=== PATIENT | female | born 1975 | race Caucasian/White ===

== ENCOUNTER 2017-09-19 21:01 | Emergency (ER) | payer OTHER ==
[2017-09-19 21:26] VITALS: BP 130/78
--- NOTE | 2017-09-19 23:02 | RADIOLOGY REPORT (SQ) ---
EXAM DESCRIPTION: SHOULDER LEFT 2 OR MORE VIEWS COMPLETED DATE/TIME: 09/19/2017 10:53 pm REASON FOR STUDY: trauma, pain . Impact injury. Pain at the posterior proximal left humerus. COMPARISON: None. NUMBER OF VIEWS: Three views. TECHNIQUE: Internal rotation, external rotation, and Y view images acquired of the left shoulder. LIMITATIONS: None. FINDINGS: MINERALIZATION: Normal. BONES: No acute fracture or dislocation. JOINTS: No dislocation. Mild degenerative changes at the acromioclavicular joint. VISUALIZED LUNGS AND RIBS: No pneumothorax. No displaced rib fracture. SOFT TISSUES: No radiopaque foreign body. IMPRESSION: No radiographic evidence of acute injury. TECHNICAL DOCUMENTATION: JOB ID: [id number] [place]-[id number] 2010 [employer]- All Rights Reserved
[2017-09-19] MEDS ORDERED: MORPHINE SULFATE IR 15 MG TABLET PO ONE (23:36)
[2017-09-19] MEDS ORDERED: ACETAMINOPHEN 325 MG TABLET PO ONE (23:36)
[2017-09-19] MEDS ORDERED: IBUPROFEN 600 MG TABLET PO ONE (23:36)
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
== END 2017-09-20 00:20 | disposition home or self-care (01) ==
LOC: ER 21:01
DX: S40.012A Contusion of left shoulder, initial encounter (principal); F17.200 Nicotine dependence, unspecified, uncomplicated; V03.10XA Pedestrian on foot injured in collision with car, pick-up truck or van in traffic accident, initial encounter; Y92.410 Unspecified street and highway as the place of occurrence of the external cause; Z86.14 Personal history of Methicillin resistant Staphylococcus aureus infection; Z98.51 Tubal ligation status
CPT/HCPCS: 99283

== ENCOUNTER 2017-10-18 11:39 | Inpatient (IN) | payer SELFPAY ==
[2017-10-18] MEDS ORDERED: VANCOMYCIN HCL INJ 1000 MG VIAL IV ONE (12:34)
[2017-10-18] MEDS ORDERED: HYDROMORPHONE HCL INJ/PF 2 MG/ML AMPULE IV ONE ×2 (12:34→15:52)
[2017-10-18] MEDS ORDERED: NORMAL SALINE 1000 ML 1,000 ML IV ONE ×2 (12:35→17:31)
--- NOTE | 2017-10-18 12:36 | ER Document Report ---
ED General - General Chief Complaint: Abscess Stated Complaint: LEG PAIN Mode of Arrival: Ambulatory Information source: Patient TRAVEL OUTSIDE OF THE [place] IN LAST 30 DAYS: No - HPI Notes: 42-year-old female presents today with complaints of right thigh, right buttocks and left thigh pain after she noticed she had an area of swelling, redness, warmth to touch with severe pain 3 days ago. Patient did realize she was getting an abscess, take a knife and "poked at it a few times" to try and "pop the abscess". Patient does have a history of MRSA. Reports pain is 10 out of 10, sharp and constant. Not tried any [id number] medications. Has not applied any heat. Patient was recently released from incarceration 2 weeks ago, has not established with a primary care provider. Denies . Denies fevers, chills, chest pain,palpitations, shortness of breath, dyspnea, nausea, vomiting, diarrhea, abdominal pain, hematuria,blurred vision, double vision, loss of vision, speech changes, LH, dizziness, syncope, headaches, wheezing, ST, URI, neck pain, weakness, bowel or bladder dysfunction, saddle anesthesia, numbness or tingling in bilateral upper or lower extremities equally , muscle paralysis, weakness in bilateral upper or lower extremities equally or rash. Denies IV drug use. - Related Data Allergies/Adverse Reactions: No Known Allergies Allergy (Verified 10/18/17 11:42) Past Medical History - General Information source: Patient - Social History Smoking Status: Current Every Day Smoker Family History: Reviewed & Not Pertinent Pulmonary Medical History: Reports: Hx Pneumonia Renal/ Medical History: Denies: Hx Peritoneal Dialysis GI Medical History: Reports: Hx Gastroesophageal Reflux Disease Musculoskeltal Medical History: Reports Hx Arthritis, Reports Hx Musculoskeletal Trauma Skin Medical History: Reports Hx MRSA Traumatic Medical History: Reports: Hx Fractures Infectious Medical History: Reports: Hx MRSA Past Surgical History: Reports: Hx Section - x1, Hx Tubal Ligation. Denies: Hx Cholecystectomy - gall stone removed - Immunizations Immunizations up to date: Yes Hx Diphtheria, Pertussis, Tetanus Vaccination: Yes - february 2014 Review of Systems - Review of Systems Notes: REVIEW OF SYSTEMS: CONSTITUTIONAL : Denies fever, chills, or sweats. Denies recent illness. EENT: Denies eye, ear, throat, or mouth pain or symptoms. Denies nasal or sinus congestion or discharge. Denies throat, tongue, or mouth swelling or difficulty swallowing. CARDIOVASCULAR: Denies chest pain. Denies palpitations or racing or irregular heart beat. Denies ankle edema. RESPIRATORY: Denies cough, cold, or chest congestion. Denies shortness of breath, difficulty breathing, or wheezing. GASTROINTESTINAL: Denies abdominal pain or distention. Denies nausea, vomiting , or diarrhea. Denies blood in vomitus, stools, or per rectum. Denies black, tarry stools. Denies constipation. GENITOURINARY: Denies difficulty urinating, painful urination, burning, frequency, blood in urine, or discharge. FEMALE GENITOURINARY: Denies vaginal bleeding, heavy or abnormal periods, irregular periods. Denies vaginal discharge or odor. MUSCULOSKELETAL: Denies back or neck pain or stiffness. Denies joint pain or swelling. SKIN: noted abscess to right thigh and right buttocks. Denies rash, lesions or sores. HEMATOLOGIC : Denies easy bruising or bleeding. LYMPHATIC: Denies swollen, enlarged glands. NEUROLOGICAL: Denies confusion or altered mental status. Denies passing out or loss of consciousness. Denies dizziness or lightheadedness. Denies headache. Denies weakness or paralysis or loss of use of either side. Denies problems with gait or speech. Denies sensory loss, numbness, or tingling. Denies seizures. PSYCHIATRIC: Denies anxiety or stress. Denies depression, suicidal ideation, or homicidal ideation. ALL OTHER SYSTEMS REVIEWED AND NEGATIVE. PHYSICAL EXAMINATION: GENERAL: Well-appearing, well-nourished and in no acute distress. HEAD: Atraumatic, normocephalic. EYES: Pupils equal round and reactive to light, extraocular movements intact, conjunctiva are normal. ENT: Nares patent, oropharynx clear without exudates. Moist mucous membranes. NECK: Normal range of motion, supple without lymphadenopathy LUNGS: Breath sounds clear to auscultation bilaterally and equal. No wheezes rales or rhonchi. HEART: Regular rate and rhythm without murmurs ABDOMEN: Soft, nontender, nondistended abdomen. No guarding, no rebound. No masses appreciated. Female : deferred Musculoskeletal: Normal range of motion, no pitting or edema. No cyanosis. NEUROLOGICAL: Cranial nerves grossly intact. Normal speech, normal gait. Normal sensory, motor exams PSYCH: Normal mood, normal affect. SKIN: Warm, Dry, normal turgor, no rashes or lesions noted. 12" by 8" area of erythema, induration, warmth to touch. noted black discoloration approx [id number]. no open wounds or drainage. Dictation was performed using [employer] voice recognition software Physical Exam - Vital signs Vitals: Temp Pulse BP Pulse Ox 98.5 F 89 110/72 97 10/18/17 11:56 10/18/17 11:56 10/18/17 11:56 10/18/17 11:56 Course - Re-evaluation Re-evalutation: 1330-On reevaluation, patient states her pain is been decreased after 1 mg of Dilaudid. Patient still awaiting CT scan with IV contrast. Patient started with 1 g of vancomycin. Discussed the results of the labs/radiology as well as the diagnosis at great length. 1500, CT results show that patient does have a increased attenuation in the subcutaneous fatty tissues of the posterior right upper thigh and buttocks, consistent with diffuse inflammation. No abscess identified. Awaiting for CBC results as nurse was unable to obtain due to blood draw. 1620: White blood cell count at 12.4, CMP are without noted renal dysfunction or liver dysfunction. C-reactive protein elevated due to inflammation. Consulted with pertinent radiological and laboratory findings with supervising physician, America Stallworth DO, we did evaluate it patient at bedside. Advised to call surgery as likely this patient OR incision and drainage. Dr. Jaden Perkins, surgeon on-call, consulted at 1645. Patient's pain is controlled with [address] Perkins take patient to the OR for incision and drainage. Patient admitted to surgery, will be observation on the medical surgical floor for incision and drainage. 10/18/17 17:50 - Vital Signs Vital signs: Temp Pulse Resp BP Pulse Ox 98.7 F 86 16 106/81 98 10/18/17 16:49 10/18/17 16:49 10/18/17 16:49 10/18/17 16:49 10/18/17 16:49 - Laboratory Result Diagrams: 10/18/17 15:26 10/18/17 13:15 Laboratory results interpreted by me: 10/18/17 10/18/17 13:15 15:26 WBC 12.4 H Hgb 10.7 L Hct 33.2 L MCV 79 L MCH 25.7 L RDW 15.6 H Lymphocytes % 10.6 L Absolute Neutrophils 9.5 H Potassium 3.4 L BUN 6 L Alkaline Phosphatase 159 H C-Reactive Protein 68.1 H Discharge - Discharge Clinical Impression: Abscess Condition: Good Disposition: ADMITTED OBSERVATION Admitting Provider: Surgicalist - Dr. Jaden Reina Unit Admitted: Medical Floor
[2017-10-18 14:17] LABS: ALANINE AMINOTRANSFERASE 23 U/L (9-52); ALBUMIN 4.3 g/dL (3.5-5.0); ALKALINE PHOSPHATASE 159 U/L (38-126); ANION GAP 11 (5-19); ASPARTATE AMINO TRANSFERASE 22 U/L (14-36); BILIRUBIN,DIRECT 0.4 mg/dL (0.0-0.4); BILIRUBIN,TOTAL 0.7 mg/dL (0.2-1.3); BLOOD UREA NITROGEN 6 mg/dL (7-20); C-REACTIVE PROTEIN 68.1 mg/L (<10.0); CARBON DIOXIDE 27 mmol/L (22-30); CHLORIDE 104 mmol/L (98-107); GLUCOSE 90 mg/dL (75-110); POTASSIUM 3.4 mmol/L (3.6-5.0); SODIUM 142.2 mmol/L (137-145); TOTAL PROTEIN 8.1 g/dL (6.3-8.2)
--- NOTE | 2017-10-18 14:31 | RADIOLOGY REPORT (SQ) ---
EXAM DESCRIPTION: CT PELVIS WITH COMPLETED DATE/TIME: 10/18/2017 2:09 pm REASON FOR STUDY: R thigh/buttocks abscess 12"x6", spread to L COMPARISON: 06/19/2010. TECHNIQUE: CT scan of the pelvis performed with intravenous contrast. No oral contrast. Images rev iewed with soft tissue and bone windows. Reconstructed coronal and sagittal MPR images reviewed. Al l images stored on PACS. All CT scanners at this facility use dose modulation, iterative reconstruction, and/or weight based d osing when appropriate to reduce radiation dose to as low as reasonably achievable (ALARA). [facility]: Dose Right [facility]: CareDose [facility]: Dose Right [facility]: Teradose 4D [facility]: Medityplus RADIATION DOSE: CT Rad equipment meets quality standard of care and radiation dose reduction techniq ues were employed. CTDIvol: 7.7 - 10.9 mGy. DLP: 812 MGy-cm. MGy. CONTRAST DOSE: 86 mL Isovue 370. RENAL FUNCTION: BUN 5 creatinine 0.65. LIMITATIONS: None. FINDINGS: PELVIC BONES: No acute fracture. No worrisome bone lesions. VISUALIZED SPINE: No acute findings. HIP(S): No acute fracture or dislocation. No worrisome bone lesions. PELVIC SOFT TISSUES: Again seen is a fatty lesion involving the right ovary. Current transverse sarwat urements are 2.2 x 3.2 cm. Measurement on prior study was 2.4 cm. EXTRAPELVIC SOFT TISSUES: Increased attenuation in the subcutaneous fatty tissues of the posterior ri ght upper thigh and buttocks. Diffuse involvement of the subcutaneous fatty tissues with no discrete fluid collection. OTHER: No other significant finding. IMPRESSION: 1. INCREASED ATTENUATION IN THE SUBCUTANEOUS FATTY TISSUES OF THE POSTERIOR RIGHT UPPER THIGH AND BUT TOCKS, CONSISTENT WITH DIFFUSE INFLAMMATION/INFECTION. NO ABSCESS IDENTIFIED. 2. FATTY LESION IN THE RIGHT OVARY MOST CONSISTENT WITH A DERMOID. NO SIGNIFICANT CHANGE SINCE 2009. TECHNICAL DOCUMENTATION: JOB ID: [id number] Quality ID # [id number]: Final reports with documentation of one or more dose reduction techniques (e.g., Au tomated exposure control, adjustment of the mA and/or kV according to patient size, use of iterative reconstruction technique) 2010 [employer]- All Rights Reserved Reading location - IP/workstation name: [email or web address]
[2017-10-18 15:39] LABS: ABSOLUTE BASOPHILS # (AUTO) 0.1 10^3/uL (0.0-0.2); ABSOLUTE EOSINOPHILS # (AUTO) 0.1 10^3/uL (0.0-0.6); ABSOLUTE LYMPHOCYTES (AUTO) 1.3 10^3/uL (0.5-4.7); ABSOLUTE MONOCYTES (AUTO) 1.4 10^3/uL (0.1-1.4); ABSOLUTE NEUT (AUTO) 9.5 10^3/uL (1.7-8.2); BASOPHILS % (AUTO) 0.6 % (0-2); EOSINOPHILS % (AUTO) 0.6 % (0-6); HEMATOCRIT 33.2 % (36.0-47.0); HEMOGLOBIN 10.7 g/dL (12.0-15.5); LYMPHOCYTES % (AUTO) 10.6 % (13-45); MEAN CORPUSCULAR HEMOGLOBIN 25.7 pg (27.0-33.4); MEAN CORPUSCULAR HGB CONC 32.4 g/dL (32.0-36.0); MEAN CORPUSCULAR VOLUME 79 fl (80-97); MONOCYTES % (AUTO) 11.7 % (3-13); PLATELET COUNT 272 10^3/uL (150-450); RED BLOOD COUNT 4.18 10^6/uL (3.72-5.28); RED CELL DISTRIBUTION WIDTH 15.6 % (11.5-14.0); SEGMENTED NEUTROPHILS % (AUTO) 76.5 % (42-78); TOTAL CELLS COUNTED % (AUTO) 100 %; WHITE BLOOD COUNT 12.4 10^3/uL (4.0-10.5)
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
[2017-10-18] MEDS ORDERED: BUPIVACAINE HCL 0.25 % INJ/PF (2.5 MG/1 ML) 30 ML VIAL ONE (17:54)
[2017-10-18] MEDS ORDERED: MIDAZOLAM 2 MG/2 ML INJ ONE (18:18)
[2017-10-18] MEDS ORDERED: FENTANYL CITRATE INJ/PF 100 MCG/2 ML AMPUL ONE ×2 (18:18→20:20)
[2017-10-18] MEDS ORDERED: KETAMINE HCL INJ 500 MG/10 ML VIAL ONE (18:18)
[2017-10-18] MEDS ORDERED: PROPOFOL INJ 200 MG/20 ML VIAL IV ONE (18:19)
[2017-10-18] MEDS ORDERED: BUPIVACAINE HCL 0.5 % INJ/PF 30 ML SDV ONE (18:33)
[2017-10-18] MEDS ORDERED: ONDANSETRON HCL INJ/PF 4 MG/2 ML SDV IV PRN (19:03)
[2017-10-18] MEDS ORDERED: MORPHINE SULFATE 10 MG/ML INJ IV PRN (19:03)
[2017-10-18] MEDS ORDERED: FENTANYL CITRATE INJ/PF 100 MCG/2 ML AMPUL IV PRN ×3 (19:03)
[2017-10-18] MEDS ORDERED: DIPHENHYDRAMINE HCL 50 MG/ML VIAL IV PRN (19:03)
[2017-10-18] MEDS ORDERED: PROMETHAZINE HCL INJ 25 MG/1 ML VIAL IV PRN (19:03)
[2017-10-18] MEDS: HYDROMORPHONE HCL INJ/PF 2 MG/ML AMPULE IV PRN ×2 (19:30→23:04)
[2017-10-18] MEDS ORDERED: HYDROMORPHONE HCL INJ/PF 2 MG/ML AMPULE ONE (19:45)
--- NOTE | 2017-10-18 20:38 | OPERATIVE REPORT E ---
Operative Report NAME: JULIO MCBRIDE : 1975 AGE: 42Y DATE OF SURGERY: 10/18/2017 ROOM: ED42 PREOPERATIVE DIAGNOSIS: Abscess of the right gluteal area. POSTOPERATIVE DIAGNOSIS: Abscess of the right gluteal area. OPERATION: Incision and drainage of right gluteal area abscess. ANESTHESIA: General. SURGEON: COSTA VELAZQUEZ M.D. INDICATION: This is a 42-year-old female with at least 3 days duration of pains along the right gluteal area. Etiology of this is not clear but she apparently had some trampoline use 1-2 weeks prior. She also had a history of prior MRSA infection in 2010. DESCRIPTION OF PROCEDURE: After adequate general anesthesia, the patient was placed in lithotomy position. The right gluteal area was then prepped and draped in the usual sterile fashion. Appropriate timeout was then called. Next, initial small incision made on an area where there is a small amount of drainage noted. Hemostasis in place over this and there is extrusion of a lot of dark, purulent material. Cultures were then obtained. The hemostat was then used to put around the area and it appears to be tracking up towards the area of the perineal side. The incision was then extended after local anesthesia infiltrated to a distance of about 5 cm. The main cavity appears to be right at the area of initial incision. There were some areas of necrotic tissue around the initial incision site. Hemostasis was then controlled with the use of electrocautery primarily because of bleeding around the subcu and dermis. The cavity roughly measured about 7 cm long x about 3 cm wide x about 2 cm deep. Next, the pulse lavage was used to irrigate the area using 3 L of saline. Following this, the operative site was then inspected and further hemostasis obtained with the use of electrocautery. Next, the area was subsequently packed with almost a bottle full of 1/4 inch Xeroform gauze. A sterile dressing was placed over the operative site. Needle, instrument, sponge count were all correct. ESTIMATED BLOOD LOSS: About 20 mL. DISPOSITION: Patient tolerated the procedure well and brought to recovery room in satisfactory condition. DICTATING PHYSICIAN: COSTA VELAZQUEZ M.D. [id number] PHY#: [id number] ID: [id number] JOB#: [id number] ACCT: [id number] cc:COSTA VELAZQUEZ M.D. >
[2017-10-18] MEDS ORDERED: VANCOMYCIN HCL INJ 1000 MG VIAL IV PRN (21:20)
[2017-10-18] MEDS: OXYCODONE-ACETAMINOPHEN 5-325 MG TABLET PO PRN (21:59)
[2017-10-19] MEDS: OXYCODONE-ACETAMINOPHEN 5-325 MG TABLET PO PRN ×4 (03:12→23:31)
[2017-10-19] MEDS: HYDROMORPHONE HCL INJ/PF 2 MG/ML AMPULE IV PRN (04:27)
[2017-10-19] MEDS ORDERED: VANCOMYCIN HCL INJ 1000 MG VIAL ONE (05:20)
[2017-10-19 05:44] LABS: APPEARANCE,URINE CLOUDY; BILIRUBIN,URINE NEGATIVE (NEGATIVE); COLOR,URINE YELLOW; GLUCOSE, URINE NEGATIVE (NEGATIVE); KETONES,URINE NEGATIVE (NEGATIVE); LEUKOCYTE ESTERASE,URINE MODERATE (NEGATIVE); NITRITE,URINE NEGATIVE (NEGATIVE); PROTEIN,URINE NEGATIVE (NEGATIVE); URINE SPECIFIC GRAVITY 1.034
[2017-10-19] MEDS: NORMAL SALINE 1000 ML 1,000 ML IV PRN ×2 (05:46→19:27)
[2017-10-19] MEDS: VANCOMYCIN HCL 1,000 MG in DEXTROSE 5%-WATER 250 ML IV SCH ×2 (05:57→17:39)
[2017-10-19] MEDS ORDERED: HYDROMORPHONE HCL INJ/PF 2 MG/ML AMPULE IV ONE (06:00)
[2017-10-19] MEDS ORDERED: HYDROMORPHONE HCL INJ/PF 2 MG/ML AMPULE IV PRN (11:16)
[2017-10-19] MEDS: KETOROLAC TROMETHAMINE INJ/PF 30 MG/1 ML SDV IV PRN ×2 (12:03→21:08)
[2017-10-19] MEDS ORDERED: OXYCODONE-ACETAMINOPHEN 5-325 MG TABLET PO PRN (13:09)
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
[2017-10-19] MEDS: DOCUSATE SODIUM 100 MG CAPSULE PO SCH (18:44)
[2017-10-20] MEDS: OXYCODONE-ACETAMINOPHEN 5-325 MG TABLET PO PRN ×5 (04:29→20:38)
[2017-10-20] MEDS: VANCOMYCIN HCL 1,000 MG in DEXTROSE 5%-WATER 250 ML IV SCH ×2 (05:49→17:49)
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
[2017-10-20] MEDS: DOCUSATE SODIUM 100 MG CAPSULE PO SCH ×2 (11:46→17:49)
[2017-10-20] MEDS: KETOROLAC TROMETHAMINE INJ/PF 30 MG/1 ML SDV IV PRN ×2 (15:10→22:44)
--- NOTE | 2017-10-20 16:27 | PDOC PROGRESS REPORT ---
Subjective Progress Note for:: 10/20/17 Subjective:: pains right gluteal area Reason For Visit: ABSCESS Physical Exam Vital Signs: Temp Pulse Resp BP Pulse Ox 98.6 F 78 18 115/67 99 10/20/17 12:05 10/20/17 12:05 10/20/17 12:05 10/20/17 12:05 10/20/17 12:05 Exam: Packing removed. Wound branding machine tender and slightly red. Results Impressions: Pelvis CT 10/18/17 12:33 IMPRESSION: 1. INCREASED ATTENUATION IN THE SUBCUTANEOUS FATTY TISSUES OF THE POSTERIOR RIGHT UPPER THIGH AND BUTTOCKS, CONSISTENT WITH DIFFUSE INFLAMMATION/INFECTION. NO ABSCESS IDENTIFIED. 2. FATTY LESION IN THE RIGHT OVARY MOST CONSISTENT WITH A DERMOID. NO SIGNIFICANT CHANGE SINCE 2009. Assessment & Plan - Diagnosis (1) Abscess and cellulitis of gluteal region Is this a current diagnosis for this admission?: Yes - Time Time Spent with patient: 15-24 minutes - Inpatient Certification Medical Necessity: Need for Pain Control, Need for IV Antibiotics - Plan Summary Plan Summary: Patient going to shower. Will repack wound afterwards. Continue IV antibiotics for MRSA infection.
[2017-10-21] MEDS: OXYCODONE-ACETAMINOPHEN 5-325 MG TABLET PO PRN ×2 (00:48→09:25)
[2017-10-21] MEDS: NORMAL SALINE 1000 ML 1,000 ML IV PRN (05:27)
[2017-10-21] MEDS: VANCOMYCIN HCL 1,000 MG in DEXTROSE 5%-WATER 250 ML IV SCH (05:31)
[2017-10-21] MEDS: DOCUSATE SODIUM 100 MG CAPSULE PO SCH (09:25)
[2017-10-21 10:49] VITALS: BP 114/70
== END 2017-10-21 11:20 | disposition home or self-care (01) | DRG 603 ==
LOC: ER 11:39 → EH 17:49 → EEVIPCON 17:49 → 2N 21:34 → OBSVTOIN 10-20 13:00
PROVIDERS: ADMIT Surgery; ATTEND Surgery
PROC: 0J990ZX Drainage of Buttock Subcutaneous Tissue and Fascia, Open Approach, Diagnostic (ICD-10-PCS; principal; 2017-10-20)
DX: L02.31 Cutaneous abscess of buttock (principal); L03.317 Cellulitis of buttock; B95.62 Methicillin resistant Staphylococcus aureus infection as the cause of diseases classified elsewhere; K21.9 Gastro-esophageal reflux disease without esophagitis; M19.90 Unspecified osteoarthritis, unspecified site; D27.0 Benign neoplasm of right ovary; F17.210 Nicotine dependence, cigarettes, uncomplicated; Z79.899 Other long term (current) drug therapy
CPT/HCPCS: 36415; 400; 72193; 80053; 81001; 81025; 83605; 84703; 85025; 86140; 87040; 87070; 87075; 87077; 87086; 87186; 87205; 96365; 96375; 96376; 99285; A6266; J1170; J1885; J2250; J2704; J3010; J3370; J3490; J7030; J7060

== ENCOUNTER 2017-12-22 10:04 | Emergency (ER) | payer SELFPAY ==
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
--- NOTE | 2017-12-22 11:05 | RADIOLOGY REPORT (SQ) ---
EXAM DESCRIPTION: FOREARM RIGHT COMPLETED DATE/TIME: 12/22/2017 10:38 am REASON FOR STUDY: fall pain sx of surgery with swelling combo films COMPARISON: None. NUMBER OF VIEWS: AP and lateral views TECHNIQUE: Two radiographic images acquired of the right forearm, including elbow and wrist in at le ast one projection. LIMITATIONS: Study is limited due to the lack of comparison radiographs. FINDINGS: MINERALIZATION: Normal. BONES: There is bony deformity of the mid ulna and radius with associated orthopedic hardware which p resumably is related to previous trauma. There are oblique lucencies at the level of mid ulna with a n associated break in the orthopedic plate transfixing the ulna which I cannot exclude as an acute fr acture. There is cortical irregularity with a cortical offset and lucencies involving the mid radius which could also represent an acute fracture. Clinical correlation is recommended. SOFT TISSUES: No obvious swelling or foreign body. OTHER: No other significant finding. IMPRESSION: Study is limited as no previous studies are available for comparison. Lucencies are nelida ntified involving the mid ulna with an associated break in the orthopedic plate which I cannot exclud e as acute fractures. Cortical irregularity with a cortical offset and lucencies are identified invo lving the mid radius which could also represent an acute fracture. Clinical correlation is recommend ed. Other findings as noted above TECHNICAL DOCUMENTATION: JOB ID: [id number] [employer]- All Rights Reserved Reading location - IP/workstation name: [email or web address]
[2017-12-22] MEDS ORDERED: ONDANSETRON 4 MG TAB.RAPDIS PO ONE (11:30)
[2017-12-22] MEDS ORDERED: MORPHINE SULFATE 10 MG/ML INJ IM ONE (11:30)
[2017-12-22] MEDS ORDERED: ONDANSETRON ODT 4 MG TAB (6 TAB/ER DISP) PO PRN (11:30)
[2017-12-22] MEDS ORDERED: HYDROMORPHONE HCL INJ/PF 2 MG/ML AMPULE IM ONE (11:41)
[2017-12-22 11:55] VITALS: BP 117/78
== END 2017-12-22 11:55 | disposition home or self-care (01) ==
LOC: ER 10:04 → EEVIPCON 10:04 → ER 11:55
DX: S52.91XA Unspecified fracture of right forearm, initial encounter for closed fracture (principal); T84.112A Breakdown (mechanical) of internal fixation device of bone of right forearm, initial encounter; W01.0XXA Fall on same level from slipping, tripping and stumbling without subsequent striking against object, initial encounter; Z88.6 Allergy status to analgesic agent; Z86.14 Personal history of Methicillin resistant Staphylococcus aureus infection; Z98.51 Tubal ligation status
CPT/HCPCS: 99283; 96372; 73090; S0119; J1170

== ENCOUNTER 2018-01-08 08:11 | Emergency (ER) | payer SELFPAY ==
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
[2018-01-08] MEDS ORDERED: OXYCODONE HCL IR 5 MG TABLET PO ONE (10:21)
[2018-01-08 10:54] VITALS: BP 129/72
== END 2018-01-08 10:53 | disposition home or self-care (01) ==
LOC: ER 08:11
DX: M79.631 Pain in right forearm (principal); Z86.14 Personal history of Methicillin resistant Staphylococcus aureus infection; Z98.890 Other specified postprocedural states
CPT/HCPCS: 99283

== ENCOUNTER 2018-08-17 16:26 | Emergency (ER) | payer SELFPAY ==
[2018-08-17] MEDS ORDERED: OXYCODONE HCL IR 5 MG TABLET PO ONE (17:31)
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
--- NOTE | 2018-08-17 18:37 | RADIOLOGY REPORT (SQ) ---
EXAM DESCRIPTION: FOREARM RIGHT COMPLETED DATE/TIME: 08/17/2018 6:26 pm REASON FOR STUDY: hit forearm on wood frame COMPARISON: 12/22/2017. NUMBER OF VIEWS: Two views. TECHNIQUE: Two radiographic images acquired of the right forearm, including elbow and wrist in at le ast one projection. LIMITATIONS: None. FINDINGS: MINERALIZATION: Normal. BONES: No acute fracture. Old healed fractures of the radius and ulna. Intact hardware. No worriso me bone lesions. SOFT TISSUES: No obvious swelling or foreign body. OTHER: No other significant finding. IMPRESSION: OLD HEALED FRACTURES OF THE RADIUS AND ULNA WITH INTACT HARDWARE. NO RADIOGRAPHIC EVIDEN CE OF ACUTE INJURY. TECHNICAL DOCUMENTATION: JOB ID: [id number] [employer]- All Rights Reserved Reading location - IP/workstation name: JOSE ENRIQUE
[2018-08-17] MEDS ORDERED: LIDOCAINE 5% (700 MG) TRANSDERMAL ADH..PATCH TP ONE (19:06)
[2018-08-17 19:44] VITALS: BP 118/80
== END 2018-08-17 19:44 | disposition home or self-care (01) ==
LOC: ER 16:26
DX: M79.601 Pain in right arm (principal); M79.89 Other specified soft tissue disorders; W22.8XXA Striking against or struck by other objects, initial encounter; Y93.89 Activity, other specified; Z98.890 Other specified postprocedural states; Z87.81 Personal history of (healed) traumatic fracture
CPT/HCPCS: 99283

== ENCOUNTER 2018-10-12 19:40 | Emergency (ER) | payer SELFPAY ==
[2018-10-12] MEDS ORDERED: NALOXONE HCL INJ 2 MG/2 ML DISP.SYRIN ONE (19:46)
[2018-10-12] MEDS ORDERED: ONDANSETRON HCL INJ/PF 4 MG/2 ML SDV ONE (19:50)
--- NOTE | 2018-10-12 19:52 | ER Document Report ---
ED Substance Abuse / Acc. OD - General Chief Complaint: Overdose Stated Complaint: POSSIBLE OVERDOSE Time Seen by Provider: 10/12/18 19:52 Mode of Arrival: Ambulatory Information source: Patient Notes: HISTORY OF PRESENT ILLNESS: Patient is a 43-year-old female with a past medical history of chronic substance abuse who presents with altered mental status secondary to self-reported heroin abuse prior to arrival. Patient is unable to say how much she took. Onset: Prior to arrival Provocation: None Quality: Weakness Radiation: None Severity: Moderate Timing: Constant SI/HI: No Hallucinations: None Current therapist: "I am not sure" Current treatment: "Nope" REVIEW OF SYSTEMS: CONSTITUTIONAL : Denies fever or chills, no sweats. Denies recent illness. EENT: Denies eye, ear, throat, or mouth pain or symptoms. Denies nasal or sinus congestion. CARDIOVASCULAR: Denies chest pain. RESPIRATORY: Denies cough, cold, or chest congestion. Denies shortness of breath, difficulty breathing, or wheezing. GASTROINTESTINAL: Denies abdominal pain. Denies nausea, vomiting, or diarrhea. Denies constipation. GENITOURINARY: Denies difficulty urinating, painful urination, burning, frequ ency, or blood in urine. FEMALE GENITOURINARY: Denies vaginal bleeding, abnormal or irregular periods. Last menstrual period MUSCULOSKELETAL: Denies neck or back pain or joint pain or swelling. SKIN: Denies rash or skin lesions. HEMATOLOGIC : Denies easy bruising or bleeding. LYMPHATIC: Denies swollen, enlarged glands. NEUROLOGICAL: Denies altered mental status or loss of consciousness. Denies headache. Denies weakness or paralysis or loss of use of either side. Denies problems with gait or speech. Denies sensory or motor loss. PSYCHIATRIC: Positive for substance abuse. Denies suicidal/homocidal thoughts. Denies anxiety or stress or depression. All other systems reviewed and negative. PHYSICAL EXAMINATION: GENERAL: Somnolent-appearing, well-nourished and in no acute distress. HEAD: Atraumatic, normocephalic. No scalp deformity, depression, or crepitance. EYES: Pupils are 1mm and equal/round/reactive to light, extraocular movements intact, sclera anicteric, conjunctiva are normal. ENT: Nares patent bilaterally, oropharynx clear without exudates or palatal petechia. Moist mucous membranes. No tonsil hypertrophy. NECK: Normal range of motion, supple without lymphadenopathy. LUNGS: Breath sounds present, equal, and clear to auscultation bilaterally. No wheezes, rales, or rhonchi. HEART: Regular rate and rhythm without murmurs, rubs, or gallops. 2+ peripheral pulses. Normal capillary refill. ABDOMEN: Soft, nontender, nondistended. Normoactive bowel sounds. No guarding, no rebound. No masses appreciated. BACK: Normal contour, no midline tenderness. Rectal exam deferred. PELVC: Deferred. EXTREMITIES: Normal range of motion, no pitting or edema. No cyanosis. NEUROLOGICAL: No focal neurological deficits. Moves all extremities spontaneously and on command. PSYCH: Somnolent and depressed mood, normal affect. No suicidal thoughts/ideations. No homocidal thoughts/ideations. No hallucinations. SKIN: Warm, dry, normal turgor, no rashes or lesions noted. ASSESSMENT AND PLAN: This patient is a 43-year-old female who presents with somnolence after possible accidental overdose of heroin, polysubstance abuse is also a possibility even though the patient denies taking other intoxicating substances. Patient is currently protecting her airway, and is easily arousable. 1. Will give 2 mg of Narcan and obtain blood work for medical clearance. 2. Will observe into the patient is mentating appropriately. TRAVEL OUTSIDE OF THE [place] IN LAST 30 DAYS: No - Related Data Allergies/Adverse Reactions: acetaminophen [From Tylenol] Allergy (Verified 12/22/17 10:08) Past Medical History - General Information source: Patient - Social History Smoking Status: Current Every Day Smoker Chew tobacco use (# tins/day): No Frequency of alcohol use: Occasional Drug Abuse: Heroin Lives with: Family Family History: Reviewed & Not Pertinent Patient has suicidal ideation: No Patient has homicidal ideation: No - Past Medical History Cardiac Medical History: Reports: None Denies: Hx Congestive Heart Failure, Hx Heart Attack, Hx Hypertension Pulmonary Medical History: Reports: None Denies: Hx Asthma, Hx Bronchitis, Hx COPD, Hx Pneumonia, Hx Tuberculosis EENT Medical History: Reports: None Neurological Medical History: Reports: None. Denies: Hx Seizures Endocrine Medical History: Reports: None Renal/ Medical History: Reports: None. Denies: Hx End Stage Renal Disease, Hx Kidney Stones, Hx Peritoneal Dialysis Malignancy Medical History: Reports: None GI Medical History: Reports: None. Denies: Hx Cirrhosis, Hx Gastroesophageal Reflux Disease, Hx Ulcer Musculoskeletal Medical History: Denies Hx Arthritis, Denies Hx Multiple Sclerosis, Reports Hx Musculoskeletal Trauma Skin Medical History: Reports Hx MRSA Psychiatric Medical History: Reports: None Denies: Hx Bipolar Disorder, Hx Depression, Hx Schizophrenia Traumatic Medical History: Reports: Hx Fractures Infectious Medical History: Reports: Hx MRSA Past Surgical History: Reports: Hx Section - x1, Hx Orthopedic Surgery - right forearm, Hx Tubal Ligation. Denies: Hx Cholecystectomy - gall stone removed - Immunizations Immunizations up to date: Yes Hx Diphtheria, Pertussis, Tetanus Vaccination: Yes - february 2014 Course - Re-evaluation Re-evalutation: 10/12/18 23:11 Labs thus far unremarkable, patient does have elevated ethanol of 101, urinalysis has yet to be obtained. Patient will continue to have IV fluids and we will continue to monitor. 10/13/18 04:44 Patient is positive for amphetamines. She has received IV fluids and it is safe to discharge home. Patient will be given return precautions, voices both understanding and agreeing with the plan. - Laboratory Result Diagrams: 10/12/18 21:20 10/12/18 21:20 Laboratory results interpreted by me: 10/12/18 10/12/18 10/13/18 21:20 21:20 03:00 WBC 11.1 H Hgb 11.0 L Hct 35.2 L MCV 69 L MCH 21.6 L MCHC 31.3 L RDW 17.5 H Seg Neutrophils % 83.4 H Lymphocytes % 8.5 L Absolute Neutrophils 9.3 H Carbon Dioxide 21 L AST 59 H Alkaline Phosphatase 173 H Urine Protein 30 H Urine Blood LARGE H Ur Leukocyte Esterase TRACE H Salicylates < 1.0 L Acetaminophen < 10 L - EKG Interpretation by Me EKG shows normal: Sinus rhythm Rate: Tachycardia Rhythm: NSR [place]/QRS: No: Right axis deviation, Left axis deviation, RBBB, LBBB, IVCD, LAHB/LAFB, LPHB/LPFB, Bifasicular block Voltage: No: Increased voltage, Consistant with LVH, Decreased voltage, Throughout, Limb leads P Waves: No: DARLEEN, LAE, Absent, AV Dissociation, Other Heart block present: No: 1st Degree, Mobitz 1, Mobitz 2, CHB (3rd degree block) When compared to previous EKG there are: Previous EKG unavailable Discharge - Discharge Clinical Impression: Polysubstance abuse Condition: Good Disposition: HOME, SELF-CARE Instructions: Narcotic Abuse ([facility]) Additional Instructions: You have been evaluated in the Emergency Department for taking drugs and drinking alcohol. While here, you had blood work obtained that was reassuring and it is now safe to be discharged home. It is unsafe and dangerous to consume/inject illegal drugs, especially when mixed with alcohol, as these may cause you to stop breathing and . Please follow-up with your primary physician as instructed. Return to the Emergency Department if you experience difficulty breathing or any other concerning symptoms. Print Language: Swedish
[2018-10-12] MEDS ORDERED: ONDANSETRON HCL INJ/PF 4 MG/2 ML SDV IV ONE (19:56)
[2018-10-12] MEDS ORDERED: NALOXONE HCL INJ 2 MG/2 ML DISP.SYRIN IV ONE (19:56)
[2018-10-12] MEDS ORDERED: LIDOCAINE 2% INJ-PF (100 MG/5 ML) SYRINGE ONE (21:06)
[2018-10-12 21:34] LABS: ABSOLUTE BASOPHILS # (AUTO) 0.1 10^3/uL (0.0-0.2); ABSOLUTE LYMPHOCYTES (AUTO) 0.9 10^3/uL (0.5-4.7); ABSOLUTE MONOCYTES (AUTO) 0.8 10^3/uL (0.1-1.4); ABSOLUTE NEUT (AUTO) 9.3 10^3/uL (1.7-8.2); BASOPHILS % (AUTO) 0.6 % (0-2); EOSINOPHILS % (AUTO) 0.3 % (0-6); HEMATOCRIT 35.2 % (36.0-47.0); LYMPHOCYTES % (AUTO) 8.5 % (13-45); MEAN CORPUSCULAR HEMOGLOBIN 21.6 pg (27.0-33.4); MEAN CORPUSCULAR HGB CONC 31.3 g/dL (32.0-36.0); MEAN CORPUSCULAR VOLUME 69 fl (80-97); MONOCYTES % (AUTO) 7.2 % (3-13); PLATELET COUNT 329 10^3/uL (150-450); RED BLOOD COUNT 5.11 10^6/uL (3.72-5.28); RED CELL DISTRIBUTION WIDTH 17.5 % (11.5-14.0); SEGMENTED NEUTROPHILS % (AUTO) 83.4 % (42-78); TOTAL CELLS COUNTED % (AUTO) 100 %; WHITE BLOOD COUNT 11.1 10^3/uL (4.0-10.5)
[2018-10-12 21:45] LABS: ALANINE AMINOTRANSFERASE 46 U/L (9-52); ALBUMIN 4.1 g/dL (3.5-5.0); ALCOHOL 101 mg/dL (NONE DETECTED); ALKALINE PHOSPHATASE 173 U/L (38-126); ANION GAP 15 (5-19); ASPARTATE AMINO TRANSFERASE 59 U/L (14-36); BILIRUBIN,DIRECT 0.2 mg/dL (0.0-0.4); BILIRUBIN,TOTAL 0.5 mg/dL (0.2-1.3); BLOOD UREA NITROGEN 9 mg/dL (7-20); CALCIUM 9.1 mg/dL (8.4-10.2); CARBON DIOXIDE 21 mmol/L (22-30); CHLORIDE 106 mmol/L (98-107); CREATINE KINASE 46 U/L (30-135); GLUCOSE 108 mg/dL (75-110); POTASSIUM 3.7 mmol/L (3.6-5.0); SODIUM 142.2 mmol/L (137-145); TOTAL PROTEIN 7.9 g/dL (6.3-8.2)
[2018-10-12 21:49] LABS: ACETAMINOPHEN < 10 ug/mL (10-30); SALICYLATE < 1.0 mg/dL (2.0-20.0)
[2018-10-13 03:26] LABS: APPEARANCE,URINE CLOUDY; BILIRUBIN,URINE NEGATIVE (NEGATIVE); COLOR,URINE YELLOW; GLUCOSE, URINE NEGATIVE (NEGATIVE); KETONES,URINE NEGATIVE (NEGATIVE); LEUKOCYTE ESTERASE,URINE TRACE (NEGATIVE); NITRITE,URINE NEGATIVE (NEGATIVE); PROTEIN,URINE 30 mg/dL (NEGATIVE); URINE SPECIFIC GRAVITY 1.015; UROBILINOGEN,URINE NEGATIVE mg/dL (<2.0)
[2018-10-13 03:38] LABS: URINE BARBITURATES SCREEN NEGATIVE; URINE BENZODIAZEPINES SCREEN NEGATIVE; URINE COCAINE SCREEN NEGATIVE; URINE MARIJUANA (THC) SCREEN NEGATIVE; URINE METHADONE SCREEN NEGATIVE; URINE PHENCYCLIDINE SCREEN NEGATIVE
[2018-10-13] MEDS ORDERED: NORMAL SALINE 1000 ML 1,000 ML IV ONE (04:46)
[2018-10-13] MEDS ORDERED: LIDOCAINE 2% INJ-PF (100 MG/5 ML) SYRINGE IV ONE (05:00)
[2018-10-13 07:31] VITALS: BP 115/78
--- NOTE | 2018-10-13 09:36 | EKG REPORT ---
SEVERITY:- OTHERWISE NORMAL ECG - SINUS TACHYCARDIA : Confirmed by: Jose Guadalupe Doan 13-Oct-2018 09:34:37
== END 2018-10-13 07:10 | disposition home or self-care (01) ==
LOC: ER 19:40
DX: F19.10 Other psychoactive substance abuse, uncomplicated (principal); R00.0 Tachycardia, unspecified; F17.200 Nicotine dependence, unspecified, uncomplicated; Z88.6 Allergy status to analgesic agent
CPT/HCPCS: 93005; 99284; 96361; 96374; 96375; 36415; 80307 ×4; 82550; 85025; 81025; 80053; 81001; 93010; L3650; J2001; J2405; J2310; J7030

== ENCOUNTER 2018-10-16 00:30 | Observation (INO) | payer SELFPAY ==
[2018-10-16] MEDS ORDERED: NORMAL SALINE 1000 ML 1,000 ML IV ONE (00:56)
[2018-10-16] MEDS ORDERED: ONDANSETRON HCL INJ/PF 4 MG/2 ML SDV IV ONE (00:57)
--- NOTE | 2018-10-16 00:59 | ER Document Report ---
ED General - General Chief Complaint: Swollen Glands Stated Complaint: NECK SWELLING Time Seen by Provider: 10/16/18 00:43 Notes: Patient is a 43-year-old female that comes emergency department for chief complaint of 1.5 weeks of worsening swelling in her neck, it started on the left but it has also developed on the right, the left is much worse, the area is tender, she states that now she is starting to get a vague sensation of shortness of breath and she has shortness of breath with exertion. She also states for the past week or so she has had almost daily vomiting episodes. She denies fever or chills. She is not currently sexually active, she does report some urinary symptoms and generalized abdominal pain. She states she has been using heroin for the past 2 months after a breakup, denies use before that. She states that she was here 2 days ago for an intentional overdose, she injected the medication into her left neck but the area had already been swollen prior to this. She denies any recent weight loss. She denies any daily medications. Past medical history of cholecystectomy, MRSA, denies any other medical history. TRAVEL OUTSIDE OF THE [place] IN LAST 30 DAYS: No - Related Data Allergies/Adverse Reactions: acetaminophen [From Tylenol] Allergy (Verified 12/22/17 10:08) Past Medical History - General Information source: Patient - Social History Smoking Status: Never Smoker Frequency of alcohol use: Occasional Drug Abuse: Heroin Lives with: Alone Family History: Reviewed & Not Pertinent - Past Medical History Cardiac Medical History: Denies: Hx Congestive Heart Failure, Hx Heart Attack, Hx Hypertension Pulmonary Medical History: Denies: Hx Asthma, Hx Bronchitis, Hx COPD, Hx Pneumonia, Hx Tuberculosis Neurological Medical History: Denies: Hx Seizures Renal/ Medical History: Denies: Hx End Stage Renal Disease, Hx Kidney Stones, Hx Peritoneal Dialysis GI Medical History: Denies: Hx Cirrhosis, Hx Gastroesophageal Reflux Disease, Hx Ulcer Musculoskeletal Medical History: Denies Hx Arthritis, Denies Hx Multiple Sclerosis, Reports Hx Musculoskeletal Trauma Skin Medical History: Reports Hx MRSA Psychiatric Medical History: Denies: Hx Bipolar Disorder, Hx Depression, Hx Schizophrenia Traumatic Medical History: Reports: Hx Fractures Infectious Medical History: Reports: Hx MRSA Past Surgical History: Reports: Hx Section - x1, Hx Orthopedic Surgery - right forearm, Hx Tubal Ligation. Denies: Hx Cholecystectomy - gall stone removed - Immunizations Immunizations up to date: Yes Hx Diphtheria, Pertussis, Tetanus Vaccination: Yes - february 2014 Review of Systems - Review of Systems Constitutional: No symptoms reported EENT: See HPI Cardiovascular: No symptoms reported Respiratory: No symptoms reported Gastrointestinal: See HPI Genitourinary: No symptoms reported Female Genitourinary: No symptoms reported Musculoskeletal: No symptoms reported Skin: No symptoms reported Hematologic/Lymphatic: No symptoms reported Neurological/Psychological: No symptoms reported Physical Exam - Vital signs Vitals: Temp Pulse Resp BP Pulse Ox 98.4 F 106 H 22 H 135/69 H 99 10/16/18 00:37 10/16/18 00:37 10/16/18 00:37 10/16/18 00:37 10/16/18 00:37 - Notes Notes: GENERAL: Alert, interacts well. No acute distress. HEAD: Normocephalic, atraumatic. EYES: Pupils equal, round, and reactive to light. Extraocular movements intact. ENT: Oral mucosa moist, tongue midline. Oropharynx unremarkable. Airway patent. Nares patent, no nasal septal hematoma, TM's intact. NECK: There are swollen areas bilaterally over the lower anterior cervical/sternocleidomastoid areas, both of these are very tender, minimal erythema, no large amount of heat, no purulent head or drainage. Ecchymosis near the location on the left side which does not appear to be new. No nuchal rigidity. LUNGS: Clear to auscultation bilaterally, no wheezes, rales, or rhonchi. No respiratory distress. HEART: Regular rate and rhythm. No murmur ABDOMEN: Minimal generalized upper abdominal tenderness. Non-distended. Bowel sounds present in all 4 quadrants. No guarding or rigidity. GENITOURINARY: Deferred EXTREMITIES: Moves all 4 extremities spontaneously. No edema, normal radial and dorsalis pedis pulses bilaterally. No cyanosis. Multiple scarred and healing areas over both forearms noted. BACK: no cervical, thoracic, lumbar midline tenderness. No saddle anesthesia, normal distal neurovascular exam. NEUROLOGICAL: Alert and oriented x3. Normal speech. [cranial nerves II through XII grossly intact]. PSYCH: Normal affect, normal mood. SKIN: Warm, dry, normal turgor. No rashes or lesions noted. Course - Re-evaluation Re-evalutation: Patient is not ill-appearing but she does have tender swollen areas bilaterally, she has bruising over the left area where she recently injected. She has a soft abdomen with only minimal tenderness in the epigastric area. No fever. She is mildly tachycardic. Workup pending. Initial CAT scan failed to be obtained with IV contrast because the IV failed. Repeat of the soft tissues of the neck was performed with IV contrast. Shows evidence of right-sided abscess. This is seen in the addendum on the report. Visualized air in the area per my read. CBC unremarkable, chemistry generally unremarkable, lactic acid is not elevated, cultures pending. Urinalysis does evidence of infection, patient was given Rocephin and vancomycin for coverage for abscess and urinary tract infection. Culture pending for this. Patient requesting to be tested for both HIV and hepatitis because of her IV drug abuse. I did discuss with Dr. Evans, recommend surgical consultation because of the location of the abscess. 10/16/18 03:30 Called and spoke with general surgeon Dr. Perkins, he states he will come evaluate the patient. Dr. Perkins has evaluated the patient, he will be admitting the patient, requests she be kept n.p.o. She has been n.p.o. since arrival. - Vital Signs Vital signs: Temp Pulse Resp BP Pulse Ox 98.5 F 103 H 16 120/68 99 10/16/18 05:24 10/16/18 05:24 10/16/18 05:24 10/16/18 05:24 10/16/18 05:24 - Laboratory Result Diagrams: 10/16/18 01:55 10/16/18 01:55 Laboratory results interpreted by me: 10/16/18 10/16/18 10/16/18 01:55 01:55 03:15 Hgb 10.1 L Hct 31.5 L MCV 68 L MCH 21.8 L RDW 17.2 H Sodium 145.2 H AST 37 H Urine Nitrite POSITIVE H Discharge - Discharge Clinical Impression: Abscess, neck, IV drug abuse Condition: Stable Disposition: ADMITTED OBSERVATION Admitting Provider: Surgicalist Unit Admitted: Surgical Floor
--- NOTE | 2018-10-16 01:57 | RADIOLOGY REPORT (SQ) ---
CLINICAL HISTORY: swelling, neck pain, short of breath COMPARISON: None. TECHNIQUE: CT NECK CHEST WITH IV CONTRAST on 10/16/2018 12:57 AM SECURITY COMPLIANCE SPECIALIST This exam was performed according to our departmental dose-optimization program, which includes automated exposure control, adjustment of the mA and/or kV according to patient size and/or use of iterative reconstruction technique. FINDINGS: The visualized portions of the brain and orbits are normal. The oral cavity, oropharynx and nasopharynx are normal. The parapharyngeal fat planes are preserved. The hypopharynx is unremarkable. The parotid and submandibular glands are grossly within normal limits. No intrinsic mass lesions are seen. . The paranasal sinuses and mastoid air cells are clear.There is mild stranding overlying both sternocleidomastoid muscles. There is a tiny bubble of air within the area of inflammation on the right, but this could be intravascular. No definite pathologically enlarged lymph nodes are identified. The thyroid gland is normal in size and configuration. The thoracic inlet is normal. The superior mediastinum and lung apices are normal. No acute osseous abnormalities are identified. IMPRESSION: Mild stranding superficially overlying both lower sternocleidomastoid muscles. No focal abscess or mass.
[2018-10-16 02:08] LABS: ABSOLUTE EOSINOPHILS # (AUTO) 0.3 10^3/uL (0.0-0.6); ABSOLUTE LYMPHOCYTES (AUTO) 1.3 10^3/uL (0.5-4.7); ABSOLUTE MONOCYTES (AUTO) 0.7 10^3/uL (0.1-1.4); ABSOLUTE NEUT (AUTO) 4.5 10^3/uL (1.7-8.2); BASOPHILS % (AUTO) 0.6 % (0-2); HEMATOCRIT 31.5 % (36.0-47.0); HEMOGLOBIN 10.1 g/dL (12.0-15.5); LYMPHOCYTES % (AUTO) 18.8 % (13-45); MEAN CORPUSCULAR HEMOGLOBIN 21.8 pg (27.0-33.4); MEAN CORPUSCULAR HGB CONC 32.1 g/dL (32.0-36.0); MEAN CORPUSCULAR VOLUME 68 fl (80-97); MONOCYTES % (AUTO) 9.8 % (3-13); PLATELET COUNT 300 10^3/uL (150-450); RED BLOOD COUNT 4.62 10^6/uL (3.72-5.28); RED CELL DISTRIBUTION WIDTH 17.2 % (11.5-14.0); SEGMENTED NEUTROPHILS % (AUTO) 65.8 % (42-78); TOTAL CELLS COUNTED % (AUTO) 100 %; WHITE BLOOD COUNT 6.8 10^3/uL (4.0-10.5)
[2018-10-16 02:28] LABS: ALANINE AMINOTRANSFERASE 30 U/L (9-52); ALBUMIN 3.7 g/dL (3.5-5.0); ALKALINE PHOSPHATASE 125 U/L (38-126); ANION GAP 10 (5-19); ASPARTATE AMINO TRANSFERASE 37 U/L (14-36); BILIRUBIN,DIRECT 0.2 mg/dL (0.0-0.4); BILIRUBIN,TOTAL 0.3 mg/dL (0.2-1.3); BLOOD UREA NITROGEN 12 mg/dL (7-20); CALCIUM 9.3 mg/dL (8.4-10.2); CARBON DIOXIDE 28 mmol/L (22-30); CHLORIDE 107 mmol/L (98-107); GLUCOSE 99 mg/dL (75-110); LIPASE 111.4 U/L (23-300); POTASSIUM 3.7 mmol/L (3.6-5.0); SODIUM 145.2 mmol/L (137-145); TOTAL PROTEIN 7.3 g/dL (6.3-8.2)
[2018-10-16] MEDS ORDERED: CEFTRIAXONE 1 GM/D5W RTU 1 GM/50 ML RTUPB IV ONE (03:33)
[2018-10-16] MEDS ORDERED: VANCOMYCIN HCL INJ 1000 MG VIAL IV ONE (03:33)
[2018-10-16] MEDS ORDERED: KETOROLAC TROMETHAMINE INJ/PF 30 MG/1 ML SDV IV ONE (03:34)
[2018-10-16 03:58] LABS: APPEARANCE,URINE SLIGHTLY-CLOUDY; BILIRUBIN,URINE NEGATIVE (NEGATIVE); COLOR,URINE YELLOW; GLUCOSE, URINE NEGATIVE (NEGATIVE); KETONES,URINE NEGATIVE (NEGATIVE); LEUKOCYTE ESTERASE,URINE NEGATIVE (NEGATIVE); NITRITE,URINE POSITIVE (NEGATIVE); PROTEIN,URINE NEGATIVE (NEGATIVE); URINE SPECIFIC GRAVITY 1.055; UROBILINOGEN,URINE NEGATIVE mg/dL (<2.0)
--- NOTE | 2018-10-16 05:49 | PDOC H&P ---
History of Present Illness Admission Date/PCP: 10/16/18 Patient complains of: right neck pains History of Present Illness: JULIO MCBRIDE is a 43 year old female who started injecting herself with mephenthamine and heroin about 2 months ago. Noted painful lump left neck 1.5 weeks ago. Noted painful swelling base of right neck after injecting this area 2-[address] scan of the neck showed swelling with air right side sternocleidomastoid area possible abscess. History of MRSA infection in the past. Last dose of drugs about 2 days ago. Past Medical History Cardiac Medical History: Denies: Congestive Heart Failure, Myocardial Infarction, Hypertension Pulmonary Medical History: Denies: Asthma, Bronchitis, Chronic Obstructive Pulmonary Disease (COPD), Pneumonia, Tuberculosis Neurological Medical History: Denies: Seizures Renal/ Medical History: Denies: End Stage Renal Disease GI Medical History: Denies: Cirrhosis, Gastroesophageal Reflux Disease Musculoskeltal Medical History: Denies: Arthritis Psychiatric Medical History: Denies: Bipolar Disorder, Depression Hematology: Denies: Anemia, Bleeding Tendencies Infectious Medical History: Reports: Methicillin-Resistant Staph Aureus Past Surgical History Past Surgical History: Reports: Section - x1, Orthopedic Surgery - ri ght forearm, Tubal Ligation, Other - I&D abscess MRSA of right thigh Denies: Cholecystectomy - gall stone removed Social History Lives with: Alone Smoking Status: Never Smoker Drugs: Heroin, Other - mephentamine Family History Family History: Reviewed & Not Pertinent Parental Family History Reviewed: Yes - no diabetes Children Family History Reviewed: No Sibling(s) Family History Reviewed.: No Medication/Allergy Home Medications: Ondansetron [Zofran Odt] 4 mg PO Q6 #30 tab.rapdis 12/22/17 Oxycodone HCl 5 mg PO Q6 #30 tablet 12/22/17 Oxycodone HCl [Oxycodone HCl 10 MG Tablet] 1 tab PO Q6HP PRN #15 tablet 01/08/18 Tramadol HCl [Ultram 50 mg Tablet] 50 mg PO ASDIR PRN #14 tablet 08/17/18 Allergies/Adverse Reactions: acetaminophen [From Tylenol] Allergy (Verified 12/22/17 10:08) Review of Systems Constitutional: PRESENT: other - denies fever/chills Eyes: PRESENT: other - no visual/hearing changes Cardiovascular: PRESENT: other - no chest pains/cough Gastrointestinal: PRESENT: other - no pains Genitourinary: PRESENT: other - no dysuria Physical Exam Vital Signs: Temp Pulse Resp BP Pulse Ox 98.5 F 103 H 16 120/68 99 10/16/18 05:24 10/16/18 05:24 10/16/18 05:24 10/16/18 05:24 10/16/18 05:24 Intake & Output 10/14/18 10/15/18 10/16/18 06:59 06:59 06:59 Intake Total 1050 Balance 1050 Weight 77 kg General appearance: PRESENT: no acute distress, cooperative Head exam: PRESENT: atraumatic Eye exam: PRESENT: conjunctiva pink Mouth exam: PRESENT: moist Neck exam: PRESENT: other - mild tender swelling left lateral neck aout 2 cm. No redness. Tender right base of neck swelling with erythema Respiratory exam: PRESENT: clear to auscultation mendy Cardiovascular exam: PRESENT: RRR Pulses: PRESENT: normal radial pulses Vascular exam: PRESENT: normal capillary refill GI/Abdominal exam: PRESENT: soft Rectal exam: PRESENT: deferred Extremities exam: PRESENT: full ROM Musculoskeletal exam: PRESENT: ambulatory Neurological exam: PRESENT: alert, oriented to person, oriented to place, oriented to time, oriented to situation Psychiatric exam: PRESENT: appropriate affect Skin exam: PRESENT: normal color, warm Results Laboratory Results: 10/16/18 01:55 10/16/18 01:55 10/16/18 10/16/18 10/16/18 01:55 01:55 01:55 WBC 6.8 RBC 4.62 Hgb 10.1 L Hct 31.5 L MCV 68 L MCH 21.8 L MCHC 32.1 RDW 17.2 H Plt Count 300 Seg Neutrophils % 65.8 Lymphocytes % 18.8 Monocytes % 9.8 Eosinophils % 5.0 Basophils % 0.6 Absolute Neutrophils 4.5 Absolute Lymphocytes 1.3 Absolute Monocytes 0.7 Absolute Eosinophils 0.3 Absolute Basophils 0.0 Sodium 145.2 H Potassium 3.7 Chloride 107 Carbon Dioxide 28 Anion Gap 10 BUN 12 Creatinine 0.72 Est GFR ( Amer) > 60 Est GFR (Non-Af Amer) > 60 Glucose 99 Lactic Acid 1.4 Calcium 9.3 Total Bilirubin 0.3 AST 37 H ALT 30 Alkaline Phosphatase 125 Total Protein 7.3 Albumin 3.7 Lipase 111.4 Urine Color Urine Appearance Urine pH Ur Specific Watson Urine Protein Urine Glucose (UA) Urine Ketones Urine Blood Urine Nitrite Ur Leukocyte Esterase Urine WBC (Auto) Urine RBC (Auto) 10/16/18 03:15 WBC RBC Hgb Hct MCV MCH MCHC RDW Plt Count Seg Neutrophils % Lymphocytes % Monocytes % Eosinophils % Basophils % Absolute Neutrophils Absolute Lymphocytes Absolute Monocytes Absolute Eosinophils Absolute Basophils Sodium Potassium Chloride Carbon Dioxide Anion Gap BUN Creatinine Est GFR ( Amer) Est GFR (Non-Af Amer) Glucose Lactic Acid Calcium Total Bilirubin AST ALT Alkaline Phosphatase Total Protein Albumin Lipase Urine Color YELLOW Urine Appearance SLIGHTLY-CLOUDY Urine pH 6.0 Ur Specific Watson 1.055 Urine Protein NEGATIVE Urine Glucose (UA) NEGATIVE Urine Ketones NEGATIVE Urine Blood NEGATIVE Urine Nitrite POSITIVE H Ur Leukocyte Esterase NEGATIVE Urine WBC (Auto) 18 Urine RBC (Auto) 0 Impressions: Soft Tissue Neck CT 10/16/18 00:57 IMPRESSION: Mild stranding superficially overlying both lower sternocleidomastoid muscles. No focal abscess or mass. Assessment & Plan - Diagnosis (1) Right neck abscess Is this a current diagnosis for this admission?: Yes (2) IV drug user Is this a current diagnosis for this admission?: Yes - Time Time Spent: 30 to 50 Minutes - Inpatient Certification Medical Necessity: Need for IV Antibiotics, Need for Surgery - Plan Summary Plan Summary: Start IV antibiotics For I&D abscess right neck
[2018-10-16 06:27] LABS: URINE BARBITURATES SCREEN NEGATIVE; URINE BENZODIAZEPINES SCREEN NEGATIVE; URINE COCAINE SCREEN NEGATIVE; URINE MARIJUANA (THC) SCREEN NEGATIVE; URINE METHADONE SCREEN NEGATIVE; URINE PHENCYCLIDINE SCREEN NEGATIVE
[2018-10-16] MEDS ORDERED: FENTANYL CITRATE INJ/PF 100 MCG/2 ML AMPUL ONE ×2 (10:49→10:59)
[2018-10-16] MEDS ORDERED: MIDAZOLAM 2 MG/2 ML INJ ONE (10:49)
[2018-10-16] MEDS ORDERED: PROPOFOL INJ 200 MG/20 ML VIAL IV ONE (10:50)
[2018-10-16] MEDS ORDERED: BUPIVACAINE HCL 0.5%-EPI 1:200000 INJ/PF 30 ML VIAL ONE (11:05)
[2018-10-16] MEDS ORDERED: ONDANSETRON HCL INJ/PF 4 MG/2 ML SDV IV PRN ×2 (11:46→13:45)
[2018-10-16] MEDS ORDERED: FENTANYL CITRATE INJ/PF 100 MCG/2 ML AMPUL IV PRN ×3 (11:46)
[2018-10-16] MEDS ORDERED: PROMETHAZINE HCL INJ 25 MG/1 ML VIAL IV PRN (11:46)
[2018-10-16] MEDS ORDERED: DIPHENHYDRAMINE HCL 50 MG/ML VIAL IV PRN (11:46)
--- NOTE | 2018-10-16 13:08 | OPERATIVE REPORT E ---
Operative Report NAME: JULIO MCBRIDE : 1975 AGE: 43Y DATE OF SURGERY: 10/16/2018 ROOM: ED18 PREOPERATIVE DIAGNOSIS: Abscesses of the right and left neck areas. POSTOPERATIVE DIAGNOSIS: Intramuscular abscesses of the right and left sternocleidomastoid muscles. PROCEDURE DONE: Incision and drainage of intramuscular sternocleidomastoid muscle abscesses, bilateral. SURGEON: COSTA VELAZQUEZ M.D. ANESTHESIA: General. INDICATIONS: This is a 43-year-old female who claims she injected her left neck about 1-1/2 weeks ago and subsequently developed swelling. About 3 days ago she injected her right neck and subsequently developed pains and swelling and tenderness, which brought her to the ED. CT scan of the neck was done, which showed some air in the right side of the neck, possibly due to abscess. DESCRIPTION OF PROCEDURE: After adequate general anesthesia, the patient was placed in the supine position and both sides of the neck were then prepped and draped in the usual sterile fashion. Appropriate timeout was then called. Next, a transverse incision made over the palpable mass of the right sternocleidomastoid muscle above the clavicle. Incision deepened through the superficial muscle. The sternocleidomastoid was then palpated and noted to have swelling and therefore this was bluntly dissected along the fibers and a gush of light purulent material extruded out. Cultures were then obtained. The cavity was bluntly enlarged and subsequently irrigated with saline solution. Digital palpation was done and no other area of collection noted. A Ruben drain, 1/4 inch, was then placed in the cavity and sutured to the skin with 3-0 Vicryl. The skin incision was partially closed with running suture using 3-0 Vicryl up to the area of the drain site. The left side of the neck was then anesthetized where the palpable mass, which was somewhat slightly smaller than the right side, roughly about 2 cm in diameter. A horizontal incision was made about 2.5 cm long. The superficial muscle was then divided with use of cautery. The sternocleidomastoid was then bluntly probed with a hemostat and a smaller amount of purulent material extruded out. Cultures of the fluid were also obtained for C and S. The area was subsequently enlarged bluntly and again digital palpation with the index finger was done and no other area of collection noted. A 1/4 inch Zachary drain was then placed through the cavity and anchored to the skin with 3-0 Vicryl. The skin was partially closed with subcuticular 3-0 Vicryl and I closed the drain site. Sterile dressings were placed over the operative sites with a 4x4 and adhesive tape. The patient tolerated the procedure well. Needle, instrument, sponge count were all correct. Estimated blood loss about 5 mL. Patient then brought to the recovery room, extubated in satisfactory condition. DICTATING PHYSICIAN: COSTA VELAZQUEZ M.D. [id number] PHY#: [id number] ID: [id number] JOB#: [id number] ACCT: [id number] cc:COSTA VELAZQUEZ M.D. >
[2018-10-16] MEDS ORDERED: NORMAL SALINE 1000 ML 1,000 ML IV PRN (13:45)
[2018-10-16] MEDS: KETOROLAC TROMETHAMINE INJ/PF 30 MG/1 ML SDV IV SCH (17:41)
[2018-10-16] MEDS: CLINDAMYCIN 600 MG/D5W RTU 600 MG/50 ML RTUPB IV SCH (17:41)
[2018-10-16] MEDS: TRAMADOL HCL 50 MG TABLET PO PRN (18:54)
[2018-10-17] MEDS: KETOROLAC TROMETHAMINE INJ/PF 30 MG/1 ML SDV IV SCH ×3 (00:43→12:24)
[2018-10-17] MEDS: TRAMADOL HCL 50 MG TABLET PO PRN ×2 (00:45→06:29)
[2018-10-17] MEDS: CLINDAMYCIN 600 MG/D5W RTU 600 MG/50 ML RTUPB IV SCH ×3 (00:45→12:16)
[2018-10-17 08:37] LABS: HEPATITIS A AB IGM Negative (Negative); HEPATITIS B CORE AB IGM Negative (Negative); HEPATITS B SURFACE ANTIGEN Negative (Negative)
[2018-10-17] MEDS ORDERED: GUAIFENESIN SYRP 200 MG/10 ML UDC PO ONE ×2 (09:00→10:30)
[2018-10-17] MEDS ORDERED: GUAIFENESIN 600 MG TABLET.SA PO ONE (10:00)
[2018-10-17 10:12] LABS: HEPATITIS C VIRUS ANTIBODY >11.0 s/co ratio (0.0-0.9)
[2018-10-17 15:54] VITALS: BP 120/68
--- NOTE | 2018-10-18 00:18 | DISCHARGE SUMMARY E ---
Discharge Summary NAME: JULIO MCBRIDE : 1975 AGE: 43Y ADMITTED: 10/16/2018 DISCHARGED: 10/17/2018 PROCEDURE DONE: Incision and drainage of intramuscular sternocleidomastoid muscle abscesses bilateral, 10/16/18, surgeon Dr. Perkins. HOSPITAL COURSE: This is a 43-year-old female who injected her left neck about a week and a half ago and the right neck with amphetamine/heroin about 3 days ago. Developed abscess of both sides of the neck. She was taken to the OR for incision and drainage of bilateral intramuscular sternocleidomastoid abscesses. Postoperatively she did very well. Drains were removed on 10/17/18. She remains afebrile. She has been coughing, though she has had this a few days before the surgery. She was given a prescription for Keflex 500 mg p.o. q.i.d. for 10 days and tramadol 50 mg p.o. q.6 hours p.r.n. for pain. She has a history of IV drug use for the past 2 months. She also has history of MRSA infection in the past. The drains were removed on the day of discharge and the wounds looked clean. She will be followed up in the surgical clinic in 10 days. DICTATING PHYSICIAN: COSTA PERKINS M.D. [id number] BRENDAY#: [id number] ID: [id number] JOB#: [id number] ACCT: [id number] cc:Ashley IBRAHIM PA >
== END 2018-10-17 18:25 | disposition home or self-care (01) ==
LOC: ER 00:30 → EH 06:07 → 4N 13:14
PROVIDERS: ATTEND Surgery
PROC: 0K920ZZ Drainage of Right Neck Muscle, Open Approach (ICD-10-PCS; 2018-10-16)
PROC: 0K930ZZ Drainage of Left Neck Muscle, Open Approach (ICD-10-PCS; principal; 2018-10-16 10:00)
DX: M60.08 Infective myositis, other site (principal); R05 Cough; R06.02 Shortness of breath; R11.10 Vomiting, unspecified; R10.9 Unspecified abdominal pain; F11.10 Opioid abuse, uncomplicated; R00.0 Tachycardia, unspecified; R10.816 Epigastric abdominal tenderness; Z86.14 Personal history of Methicillin resistant Staphylococcus aureus infection; Z91.5 Personal history of self-harm; N39.0 Urinary tract infection, site not specified
CPT/HCPCS: 99284; 96361; 96375; 96365; 96366; 36415; 87040; 87086; 87070; 87205; 83690; 85025; 81025; 87075; 87077; 87088; 80053; 81001; 86701; 87186; 80307; 83605; 80074; 70491; 21501; J2250; J3490; J3010; J1885 ×2; J2405; J7030; J2704; J3370; J0696; 300

== ENCOUNTER 2018-11-05 14:45 | Emergency (ER) | payer SELFPAY ==
--- NOTE | 2018-11-05 15:10 | ER Document Report ---
ED Substance Abuse / Acc. OD - General Stated Complaint: POSSIBLE OVERDOSE Time Seen by Provider: 11/05/18 14:58 Mode of Arrival: Stretcher Information source: Emergency Med Personnel TRAVEL OUTSIDE OF THE [place] IN LAST 30 DAYS: No - HPI Patient complains to provider of: Substance abuse Notes: Patient is a 43-year-old female brought to the emergency room by EMS for possible overdose, patient is incoherent, altered, babbling, covered in feces which EMS reports she was eating, they also found an empty bottle of [id number] sleep aid with 25 mg of diphenhydramine, patient has a history of previous overdose as well as IV drug abuse with resultant abscesses - Related Data Allergies/Adverse Reactions: acetaminophen [From Tylenol] Allergy (Verified 12/22/17 10:08) Past Medical History - General Information source: Emergency Med Personnel - Social History Smoking Status: Unknown if Ever Smoked Family History: Reviewed & Not Pertinent - Past Medical History Cardiac Medical History: Denies: Hx Congestive Heart Failure, Hx Heart Attack, Hx Hypertension Pulmonary Medical History: Denies: Hx Asthma, Hx Bronchitis, Hx COPD, Hx Pneumonia, Hx Tuberculosis Neurological Medical History: Denies: Hx Seizures Renal/ Medical History: Denies: Hx End Stage Renal Disease, Hx Kidney Stones, Hx Peritoneal Dialysis GI Medical History: Denies: Hx Cirrhosis, Hx Gastroesophageal Reflux Disease, Hx Ulcer Musculoskeletal Medical History: Denies Hx Arthritis, Denies Hx Multiple Sclerosis, Reports Hx Musculoskeletal Trauma Skin Medical History: Reports Hx MRSA Psychiatric Medical History: Denies: Hx Bipolar Disorder, Hx Depression, Hx Schizophrenia Traumatic Medical History: Reports: Hx Fractures Infectious Medical History: Reports: Hx MRSA Past Surgical History: Reports: Hx Section - x1, Hx Orthopedic Surgery - right forearm, Hx Tubal Ligation, Other - I&D abscess MRSA of right thigh. Denies: Hx Cholecystectomy - gall stone removed - Immunizations Immunizations up to date: Yes Hx Diphtheria, Pertussis, Tetanus Vaccination: Yes - february 2014 Review of Systems - Review of Systems -: Yes ROS unobtainable due to patient's medical condition Physical Exam - Vital signs Vitals: Resp Pulse Ox 19 95 11/05/18 14:56 11/05/18 14:56 Interpretation: Tachycardic - General General appearance: Alert In distress: Mild - HEENT Head: Normocephalic, Atraumatic, Other - Patient's face is covered in feces Eyes: Normal Pupils: PERRL Neck: Normal - Respiratory Respiratory status: No respiratory distress Chest status: Nontender Breath sounds: Normal Chest palpation: Normal - Cardiovascular Rhythm: Regular, Tachycardia Heart sounds: Normal auscultation Murmur: No - Abdominal Inspection: Normal Distension: No distension Bowel sounds: Normal Tenderness: Nontender Organomegaly: No organomegaly - Back Back: Normal, Nontender - Extremities General upper extremity: Normal inspection, Nontender, Normal color, Normal ROM, Normal temperature General lower extremity: Normal inspection, Nontender, Normal color, Normal ROM, Normal temperature, Normal weight bearing. No: Kisha's sign - Neurological Neuro grossly intact: Yes Cognition: Normal Orientation: AAOx4 Man Coma Scale Eye Opening: Spontaneous Man Coma Scale Verbal: Incomprehensible [place] Coma Scale Motor: Obeys Commands [place] Coma Scale Total: 12 Motor strength normal: LUE, RUE, LLE, RLE Sensory: Normal - Psychological Associated symptoms: Confused - Skin Skin Temperature: Warm Skin Moisture: Dry Skin Color: Normal Course - Re-evaluation Re-evalutation: 11/05/18 15:32 d/w poison control, [place], no charcoal recommended since patient is already altered, they recommend routine labs with a Tylenol and salicylate level and liver function studies, EKG, cardiac monitoring, IV fluids and supportive care otherwise 11/05/18 15:34 11/05/18 22:02 Patient stating that she wishes to be discharged from the emergency department, I discussed with her her intention having taking what appears to be an overdose prior to coming to the emergency department, she adamantly denies that this was a suicide attempt, but is unwilling to tell me exactly why she did overdose unlikely sleeping pills and/or methamphetamines, stating that she is not suicidal and that she wishes to sign out of his medical advice, I did warn leyla ny of the risks associated with leaving the hospital and attempted to convince her to stay for further evaluation and treatment, however she is adamant that she wishes to leave at this time, patient was able to ambulate without difficulty, she is alert and oriented x3, although I think it is a poor decision on patient's part I do not believe she lacks the capacity to make such a decision at this time so she was permitted to sign out AGAINST MEDICAL ADVICE, she was advised to take medications only as prescribed or directed, follow-up with her primary care provider or return if symptoms worsen, patient acknowledges understanding and agreement with this plan - Vital Signs Vital signs: Temp Pulse Resp BP Pulse Ox 21 H 141/83 H 94 11/05/18 18:01 11/05/18 18:01 11/05/18 16:00 - Laboratory Result Diagrams: 11/05/18 15:10 11/05/18 15:10 Laboratory results interpreted by me: 11/05/18 11/05/18 11/05/18 15:10 15:10 16:27 WBC 17.6 H Hgb 11.3 L Hct 35.4 L MCV 67 L MCH 21.6 L RDW 18.5 H Seg Neuts % (Manual) 86 H Lymphocytes % (Manual) 3 L Abs Neuts (Manual) 15.8 H Potassium 3.5 L AST 87 H ALT 111 H Alkaline Phosphatase 140 H Urine Blood SMALL H Ur Leukocyte Esterase TRACE H Salicylates < 1.0 L Acetaminophen < 10 L - EKG Interpretation by Me EKG shows normal: Sinus rhythm Rate: Tachycardia Critical Care Note - Critical Care Note Total time excluding time spent on procedures (mins): 60 Comments: Patient arrived after apparent drug overdose, with acute delirium, tachycardia and likely anticholinergic syndrome Discharge - Discharge Clinical Impression: Substance abuse Disposition: AGAINST MEDICAL ADVICE Instructions: Overdose ([facility]), Overdose / Ingestion ([facility]) Additional Instructions: Follow up with your primary care provider in one to 2 days. Return to the emergency room immediately if symptoms worsen or any additional concerns. Take medications only as prescribed in the proper prescribed amounts.
[2018-11-05 15:17] LABS: HEMATOCRIT 35.4 % (36.0-47.0); HEMOGLOBIN 11.3 g/dL (12.0-15.5); MEAN CORPUSCULAR HEMOGLOBIN 21.6 pg (27.0-33.4); MEAN CORPUSCULAR VOLUME 67 fl (80-97); PLATELET COUNT 355 10^3/uL (150-450); RED BLOOD COUNT 5.26 10^6/uL (3.72-5.28); RED CELL DISTRIBUTION WIDTH 18.5 % (11.5-14.0); WHITE BLOOD COUNT 17.6 10^3/uL (4.0-10.5)
[2018-11-05] MEDS ORDERED: NORMAL SALINE 1000 ML 1,000 ML IV ONE ×2 (15:34→19:50)
[2018-11-05 15:36] LABS: ALANINE AMINOTRANSFERASE 111 U/L (9-52); ALBUMIN 4.2 g/dL (3.5-5.0); ALKALINE PHOSPHATASE 140 U/L (38-126); ANION GAP 13 (5-19); ASPARTATE AMINO TRANSFERASE 87 U/L (14-36); BILIRUBIN,DIRECT 0.1 mg/dL (0.0-0.4); BILIRUBIN,TOTAL 0.6 mg/dL (0.2-1.3); BLOOD UREA NITROGEN 11 mg/dL (7-20); CALCIUM 9.3 mg/dL (8.4-10.2); CARBON DIOXIDE 26 mmol/L (22-30); CHLORIDE 104 mmol/L (98-107); GLUCOSE 105 mg/dL (75-110); POTASSIUM 3.5 mmol/L (3.6-5.0); SODIUM 143.3 mmol/L (137-145); TOTAL PROTEIN 8.2 g/dL (6.3-8.2)
[2018-11-05 15:38] LABS: ACETAMINOPHEN < 10 ug/mL (10-30); ALCOHOL < 10 mg/dL (NONE DETECTED); SALICYLATE < 1.0 mg/dL (2.0-20.0)
[2018-11-05 15:54] LABS: ABSOLUTE LYMPHOCYTES# (MANUAL) 0.5 10^3/uL (0.5-4.7); ABSOLUTE MONOCYTES # (MANUAL) 1.1 10^3/uL (0.1-1.4); ABSOLUTE NEUTROPHILS# (MANUAL) 15.8 10^3/uL (1.7-8.2); BAND NEUTROPHILS % (MANUAL) 4 % (3-5); BASOPHILS % (MANUAL) 0 % (0-2); EOSINOPHILS % (MANUAL) 1 % (0-6); LYMPHOCYTES % (MANUAL) 3 % (13-45); MONOCYTES % (MANUAL) 6 % (3-13); SEGMENTED NEUTROPHILS % (MAN) 86 % (42-78); TOTAL CELLS COUNTED 100
[2018-11-05 15:58] LABS: ANISOCYTOSIS 2+; HYPOCHROMASIA 2+; OVALOCYTES SLIGHT; PLATELET COMMENT ADEQUATE; TOXIC GRANULATION 2+; TOXIC VACUOLATION PRESENT
[2018-11-05 18:37] LABS: APPEARANCE,URINE SLIGHTLY-CLOUDY; BILIRUBIN,URINE NEGATIVE (NEGATIVE); COLOR,URINE YELLOW; GLUCOSE, URINE NEGATIVE (NEGATIVE); KETONES,URINE NEGATIVE (NEGATIVE); LEUKOCYTE ESTERASE,URINE TRACE (NEGATIVE); NITRITE,URINE NEGATIVE (NEGATIVE); PROTEIN,URINE NEGATIVE (NEGATIVE); URINE SPECIFIC GRAVITY 1.012; UROBILINOGEN,URINE NEGATIVE mg/dL (<2.0)
[2018-11-05 18:50] LABS: URINE BARBITURATES SCREEN NEGATIVE; URINE BENZODIAZEPINES SCREEN NEGATIVE; URINE COCAINE SCREEN NEGATIVE; URINE MARIJUANA (THC) SCREEN NEGATIVE; URINE METHADONE SCREEN NEGATIVE; URINE PHENCYCLIDINE SCREEN NEGATIVE
[2018-11-05 18:55] VITALS: BP 141/83
--- NOTE | 2018-11-05 23:00 | EKG REPORT ---
SEVERITY:- BORDERLINE ECG - SINUS TACHYCARDIA BORDERLINE T WAVE ABNORMALITIES : Confirmed by: Jose Guadalupe Doan 05-Nov-2018 22:59:46
== END 2018-11-05 21:35 | disposition left against medical advice (07) ==
LOC: ER 14:45
DX: F19.10 Other psychoactive substance abuse, uncomplicated (principal); R41.0 Disorientation, unspecified; R00.0 Tachycardia, unspecified; Z88.6 Allergy status to analgesic agent; Z53.20 Procedure and treatment not carried out because of patient's decision for unspecified reasons
CPT/HCPCS: 93005; 99291; 96360; 36415; 80307 ×4; 84703; 85025; 80053; 81001; 93010; J7030

== ENCOUNTER 2019-01-23 08:27 | Emergency (ER) | payer SELFPAY ==
--- NOTE | 2019-01-23 09:13 | ER Document Report ---
ED Medical Screen (RME) - General Chief Complaint: Vaginal Bleeding Stated Complaint: VAGINAL BLEEDING Time Seen by Provider: 01/23/19 09:11 TRAVEL OUTSIDE OF THE [place] IN LAST 30 DAYS: No - Related Data Allergies/Adverse Reactions: acetaminophen [From Tylenol] Allergy (Verified 01/23/19 08:28) Past Medical History - Past Medical History Cardiac Medical History: Denies: Hx Congestive Heart Failure, Hx Heart Attack, Hx Hypertension Pulmonary Medical History: Denies: Hx Asthma, Hx Bronchitis, Hx COPD, Hx Pneumonia, Hx Tuberculosis Neurological Medical History: Denies: Hx Seizures Renal/ Medical History: Denies: Hx End Stage Renal Disease, Hx Kidney Stones, Hx Peritoneal Dialysis GI Medical History: Denies: Hx Cirrhosis, Hx Gastroesophageal Reflux Disease, Hx Ulcer Musculoskeltal Medical History: Denies Hx Arthritis, Denies Hx Multiple Sclerosis, Reports Hx Musculoskeletal Trauma Skin Medical History: Reports Hx MRSA Psychiatric Medical History: Denies: Hx Bipolar Disorder, Hx Depression, Hx Schizophrenia Traumatic Medical History: Reports: Hx Fractures Infectious Medical History: Reports: Hx MRSA Past Surgical History: Reports: Hx Section - x1, Hx Orthopedic Surgery - right forearm, Hx Tubal Ligation, Other - I&D abscess MRSA of right thigh. Denies: Hx Cholecystectomy - gall stone removed - Immunizations Immunizations up to date: Yes Hx Diphtheria, Pertussis, Tetanus Vaccination: Yes - february 2014 History of Influenza Vaccine for 05/2017 - 10/2017 Season: Refused Physical Exam - Vital signs Vitals: Temp Pulse Resp BP Pulse Ox 97.8 F 109 H 18 144/99 H 100 01/23/19 08:38 01/23/19 08:38 01/23/19 08:38 01/23/19 08:38 01/23/19 08:38 Course - Vital Signs Vital signs: Temp Pulse Resp BP Pulse Ox 97.8 F 109 H 18 144/99 H 100 01/23/19 08:38 01/23/19 08:38 01/23/19 08:38 01/23/19 08:38 01/23/19 08:38
--- NOTE | 2019-01-23 09:16 | ER Document Report ---
ED Medical Screen (RME) - General Chief Complaint: Vaginal Bleeding Stated Complaint: VAGINAL BLEEDING Time Seen by Provider: 01/23/19 09:11 TRAVEL OUTSIDE OF THE [place] IN LAST 30 DAYS: No - HPI Notes: 01/23/19 09:14 Patient is a 43-year-old female who presents complaining of heavy vaginal bleeding and passing large clots over the past 2.5 weeks. She does have associated abdominal cramping as well. Denies [place], fever, neck pain, URI, CP, SOB, n/v, diarrhea, dysuria, back pain, or rash. I have treated and performed a rapid initial assessment of this patient. A comprehensive ED assessment and evaluation of the patient, analysis of test results and completion of medical decision making process will be conducted by additional ED providers. PHYSICAL EXAMINATION: GENERAL: Well-appearing, well-nourished and in no acute distress. A&Ox4. Answers questions appropriately. LUNGS: Breath sounds clear to auscultation bilaterally and equal. No wheezes rales or rhonchi. HEART: Regular rate and rhythm without murmurs, rubs, gallops. ABDOMEN: Soft, nondistended abdomen. No guarding, no rebound. Normal bowel sounds present. No CVA tenderness bilaterally. + mild lower abdominal tenderness (cannot elicit thorough abd exam w/o bed, however). - Related Data Allergies/Adverse Reactions: acetaminophen [From Tylenol] Allergy (Verified 01/23/19 08:28) Past Medical History - Social History Frequency of alcohol use: None Drug Abuse: None - Past Medical History Cardiac Medical History: Denies: Hx Congestive Heart Failure, Hx Heart Attack, Hx Hypertension Pulmonary Medical History: Denies: Hx Asthma, Hx Bronchitis, Hx COPD, Hx Pneumonia, Hx Tuberculosis Neurological Medical History: Denies: Hx Seizures Renal/ Medical History: Denies: Hx End Stage Renal Disease, Hx Kidney Stones, Hx Peritoneal Dialysis GI Medical History: Denies: Hx Cirrhosis, Hx Gastroesophageal Reflux Disease, Hx Ulcer Musculoskeltal Medical History: Denies Hx Arthritis, Denies Hx Multiple Sclerosis, Reports Hx Musculoskeletal Trauma Skin Medical History: Reports Hx MRSA Psychiatric Medical History: Denies: Hx Bipolar Disorder, Hx Depression, Hx Schizophrenia Traumatic Medical History: Reports: Hx Fractures Infectious Medical History: Reports: Hx MRSA Past Surgical History: Reports: Hx Section - x1, Hx Orthopedic Surgery - right forearm, Hx Tubal Ligation, Other - I&D abscess MRSA of right thigh. Denies: Hx Cholecystectomy - gall stone removed - Immunizations Immunizations up to date: Yes Hx Diphtheria, Pertussis, Tetanus Vaccination: Yes - february 2014 History of Influenza Vaccine for 05/2017 - 10/2017 Season: Refused Physical Exam - Vital signs Vitals: Temp Pulse Resp BP Pulse Ox 97.8 F 109 H 18 144/99 H 100 01/23/19 08:38 01/23/19 08:38 01/23/19 08:38 01/23/19 08:38 01/23/19 08:38 Course - Vital Signs Vital signs: Temp Pulse Resp BP Pulse Ox 97.8 F 109 H 18 144/99 H 100 01/23/19 08:38 01/23/19 08:38 01/23/19 08:38 01/23/19 08:38 01/23/19 08:38
[2019-01-23 09:54] LABS: ABSOLUTE BASOPHILS # (AUTO) 0.1 10^3/uL (0.0-0.2); ABSOLUTE EOSINOPHILS # (AUTO) 0.1 10^3/uL (0.0-0.6); ABSOLUTE LYMPHOCYTES (AUTO) 0.9 10^3/uL (0.5-4.7); ABSOLUTE MONOCYTES (AUTO) 0.4 10^3/uL (0.1-1.4); ABSOLUTE NEUT (AUTO) 3.7 10^3/uL (1.7-8.2); BASOPHILS % (AUTO) 1.4 % (0-2); EOSINOPHILS % (AUTO) 1.8 % (0-6); HEMATOCRIT 27.6 % (36.0-47.0); HEMOGLOBIN 8.8 g/dL (12.0-15.5); LYMPHOCYTES % (AUTO) 17.8 % (13-45); MEAN CORPUSCULAR HEMOGLOBIN 22.1 pg (27.0-33.4); MEAN CORPUSCULAR VOLUME 69 fl (80-97); MONOCYTES % (AUTO) 7.6 % (3-13); PLATELET COUNT 348 10^3/uL (150-450); RED BLOOD COUNT 3.99 10^6/uL (3.72-5.28); RED CELL DISTRIBUTION WIDTH 17.5 % (11.5-14.0); SEGMENTED NEUTROPHILS % (AUTO) 71.4 % (42-78); TOTAL CELLS COUNTED % (AUTO) 100 %; WHITE BLOOD COUNT 5.1 10^3/uL (4.0-10.5)
[2019-01-23 10:11] LABS: ALANINE AMINOTRANSFERASE 58 U/L (9-52); ALBUMIN 3.9 g/dL (3.5-5.0); ALKALINE PHOSPHATASE 95 U/L (38-126); ANION GAP 10 (5-19); ASPARTATE AMINO TRANSFERASE 59 U/L (14-36); BILIRUBIN,DIRECT 0.3 mg/dL (0.0-0.4); BILIRUBIN,TOTAL 0.3 mg/dL (0.2-1.3); BLOOD UREA NITROGEN 9 mg/dL (7-20); CALCIUM 9.3 mg/dL (8.4-10.2); CARBON DIOXIDE 26 mmol/L (22-30); CHLORIDE 105 mmol/L (98-107); GLUCOSE 93 mg/dL (75-110); POTASSIUM 3.6 mmol/L (3.6-5.0); SODIUM 141.4 mmol/L (137-145); TOTAL PROTEIN 7.6 g/dL (6.3-8.2)
--- NOTE | 2019-01-23 10:31 | RADIOLOGY REPORT (SQ) ---
EXAM DESCRIPTION: U/S NON OB PEL TV W/DOPPLER COMPLETED DATE/TIME: 01/23/2019 9:57 am REASON FOR STUDY: heavy bleeding COMPARISON: None. TECHNIQUE: Dynamic and static grayscale images acquired of the pelvis via transvaginal approach and recorded on PACS. Additional selected color Doppler and spectral images recorded. LIMITATIONS: None. FINDINGS: UTERUS: Contour normal. No mass. ENDOMETRIAL STRIPE: No focal or generalized thickening. No masses. CERVIX: No nabothian cysts. RIGHT OVARY AND DOPPLER: Normal size. 3.2 cm simple appearing cyst. No worrisome masses. Normal art erial vascular flow without evidence for torsion. LEFT OVARY AND DOPPLER: Normal size. No worrisome masses. Normal arterial vascular flow without evide nce for torsion. FREE FLUID: None noted. OTHER: No other significant finding. IMPRESSION: 3 cm cyst right ovary. No explanation for vaginal bleeding. TECHNICAL DOCUMENTATION: JOB ID: [id number] [employer]- All Rights Reserved Rev-01/01 Reading location - IP/workstation name: [email or web address]
[2019-01-23 10:37] LABS: APPEARANCE,URINE CLEAR; BILIRUBIN,URINE NEGATIVE (NEGATIVE); COLOR,URINE COLORLESS; GLUCOSE, URINE NEGATIVE (NEGATIVE); KETONES,URINE NEGATIVE (NEGATIVE); LEUKOCYTE ESTERASE,URINE NEGATIVE (NEGATIVE); NITRITE,URINE NEGATIVE (NEGATIVE); PROTEIN,URINE NEGATIVE (NEGATIVE); URINE SPECIFIC GRAVITY 1.003; UROBILINOGEN,URINE NEGATIVE mg/dL (<2.0)
--- NOTE | 2019-01-23 12:06 | ER Document Report ---
ED General - General Chief Complaint: Vaginal Bleeding Stated Complaint: VAGINAL BLEEDING Time Seen by Provider: 01/23/19 09:11 TRAVEL OUTSIDE OF THE [place] IN LAST 30 DAYS: No - HPI Notes: Patient is a 43-year-old female presents to the emergency department for evaluation of vaginal bleeding. She states she has had bleeding for about 2-1/2 weeks. She states prior to that she could not remember when her last menstruation was. She is unsure when her mother went through menopause. She denies any hot flashes. She states her periods have been irregular for several months. She states she is also passing clots. She is currently sexually active. She denies any vaginal discharge. No significant pain at this time. - Related Data Allergies/Adverse Reactions: acetaminophen [From Tylenol] Allergy (Verified 01/23/19 08:28) Past Medical History - General Information source: Patient - Social History Smoking Status: Never Smoker Frequency of alcohol use: None Drug Abuse: None Family History: Reviewed & Not Pertinent Patient has suicidal ideation: No Patient has homicidal ideation: No - Past Medical History Cardiac Medical History: Denies: Hx Congestive Heart Failure, Hx Heart Attack, Hx Hypertension Pulmonary Medical History: Denies: Hx Asthma, Hx Bronchitis, Hx COPD, Hx Pneumonia, Hx Tuberculosis Neurological Medical History: Denies: Hx Seizures Renal/ Medical History: Denies: Hx End Stage Renal Disease, Hx Kidney Stones, Hx Peritoneal Dialysis GI Medical History: Denies: Hx Cirrhosis, Hx Gastroesophageal Reflux Disease, Hx Ulcer Musculoskeletal Medical History: Denies Hx Arthritis, Denies Hx Multiple Sclerosis, Reports Hx Musculoskeletal Trauma Skin Medical History: Reports Hx MRSA Psychiatric Medical History: Denies: Hx Bipolar Disorder, Hx Depression, Hx Schizophrenia Traumatic Medical History: Reports: Hx Fractures Infectious Medical History: Reports: Hx MRSA Past Surgical History: Reports: Hx Section - x1, Hx Orthopedic Surgery - right forearm, Hx Tubal Ligation, Other - I&D abscess MRSA of right thigh. Denies: Hx Cholecystectomy - gall stone removed - Immunizations Immunizations up to date: Yes Hx Diphtheria, Pertussis, Tetanus Vaccination: Yes - february 2014 Review of Systems - Review of Systems Constitutional: No symptoms reported EENT: No symptoms reported Cardiovascular: No symptoms reported Respiratory: No symptoms reported Gastrointestinal: No symptoms reported Genitourinary: No symptoms reported Female Genitourinary: See HPI Musculoskeletal: No symptoms reported Skin: No symptoms reported Neurological/Psychological: No symptoms reported Physical Exam - Vital signs Vitals: Temp Pulse Resp BP Pulse Ox 97.8 F 109 H 18 144/99 H 100 01/23/19 08:38 01/23/19 08:38 01/23/19 08:38 01/23/19 08:38 01/23/19 08:38 - Notes Notes: Vital signs reviewed, please refer to chart. Head is normocephalic, atraumatic. Pupils equal round, reactive to light. Neck is supple without meningismus. Heart is regular rate and rhythm. Lungs are clear to auscultation bilaterally. Abdomen is soft, nontender, normoactive bowel sounds throughout. Genitourinary exam is performed. Normal external genitalia without lesions. Minimal amount of bleeding noted on vaginal exam. Cervix is without lesions. Extremities without cyanosis, clubbing. Posterior calves are nontender. Peripheral pulses are equal. Skin is warm and dry. Course - Re-evaluation Re-evalutation: 01/23/19 12:03 Patient presents emergency department for evaluation. She has not had a pelvic exam since her twins were born 18 years ago. Pelvic exam was performed. I did explain to the patient that she needs a Pap smear and further evaluation. I explained this was just to evaluate for the source of bleeding. Her hemoglobin is down to 8.8. I will start her on iron. She is warned about possible side effects, including stomach upset and constipation. Otherwise we will refer her to on-call gynecology. She is to return to the ED with worsening or new concern ing symptoms of any sort. - Vital Signs Vital signs: Temp Pulse Resp BP Pulse Ox 97.8 F 109 H 18 144/99 H 100 01/23/19 08:38 01/23/19 08:38 01/23/19 08:38 01/23/19 08:38 01/23/19 08:38 - Laboratory Result Diagrams: 01/23/19 09:28 01/23/19 09:28 Laboratory results interpreted by me: 01/23/19 01/23/19 01/23/19 09:28 09:28 09:28 Hgb 8.8 L Hct 27.6 L MCV 69 L MCH 22.1 L RDW 17.5 H AST 59 H ALT 58 H Urine Blood MODERATE H - Diagnostic Test Radiology reviewed: Reports reviewed Radiology results interpreted by me: 01/23/19 12:03 Transvaginal US 01/23/19 09:13 IMPRESSION: 3 cm cyst right ovary. No explanation for vaginal bleeding. Discharge - Discharge Clinical Impression: Premenopausal menorrhagia Condition: Stable Disposition: HOME, SELF-CARE Instructions: Vaginal Bleeding ([facility]) Additional Instructions: Take the iron as discussed. Watch for stomach upset and constipation with this medication. Follow-up with our on-call leguillon debeader, listed below, or the leguillon debeader of your choice. Return to the emergency department with worsening or new concerning symptoms of any sort.
[2019-01-23 12:21] VITALS: BP 145/86
== END 2019-01-23 12:21 | disposition home or self-care (01) ==
LOC: ER 08:27
DX: N92.4 Excessive bleeding in the premenopausal period (principal); N83.201 Unspecified ovarian cyst, right side; Z88.8 Allergy status to other drugs, medicaments and biological substances
CPT/HCPCS: 36415; 76830; 80053; 81001; 81025; 85025; 93976; 99284